=== PATIENT | female | born 1975 | race Two or more races ===

== ENCOUNTER 2018-09-17 11:27 | Emergency (ER) | payer OTHER ==
[2018-09-17 11:38] VITALS: BMI 26.4
[2018-09-17 12:41] LABS: PH,URINE 7.5 (5.0-8.0); URINE APPEARANCE CLEAR; URINE BILIRUBIN NEGATIVE (NEGATIVE); URINE COLOR YELLOW; URINE GLUCOSE (UA) NEGATIVE (NEGATIVE); URINE KETONE NEGATIVE (NEGATIVE); URINE LEUK ESTERASE NEGATIVE (NEGATIVE); URINE NITRITE NEGATIVE (NEGATIVE); URINE PROTEIN NEGATIVE (NEGATIVE); URINE UROBILINOGEN 0.2 mg/dL (0.2-1.0)
[2018-09-17 12:44] LABS: HCG,QUALITATIVE URINE Negative
[2018-09-17] MEDS ORDERED: SODIUM CHLORIDE 0.9% 1000 ML INFUS.BAG IV ONE (13:10)
[2018-09-17 13:29] LABS: EOS % 0.9 % (0-4.5); HEMATOCRIT 40.2 % (32.4-45.2); HEMOGLOBIN 13.6 GM/dL (10.7-15.3); LYMPH % 23.5 % (8-40); MCH 30.5 pg (25.7-33.7); MCHC 33.8 g/dl (32.0-36.0); MEAN CELL VOLUME 90.2 fl (80-96); MEAN PLT VOLUME 9.9 fl (7.5-11.1); MONO % 8.5 % (3.8-10.2); NEUT % 66.1 % (42.8-82.8); PLATELET COUNT 242 K/MM3 (134-434); RBC 4.46 M/mm3 (3.60-5.2); RDW 12.9 % (11.6-15.6); WHITE BLOOD COUNT 8.8 K/mm3 (4.0-10.0)
[2018-09-17 13:54] LABS: ALBUMIN 4.3 g/dl (3.4-5.0); BILIRUBIN,TOTAL 0.3 mg/dL (0.2-1); BLOOD UREA NITROGEN 9.1 mg/dL (7-18); CALCIUM 9.9 mg/dL (8.5-10.1); CREATININE 0.9 mg/dL (0.55-1.3); POTASSIUM 3.8 mmol/L (3.5-5.1)
[2018-09-17] MEDS ORDERED: KETOROLAC TROMETHAMINE 15 MG/ML VIAL IVPUSH ONE (13:59)
[2018-09-17] MEDS ORDERED: KETOROLAC TROMETHAMINE 15 MG/ML VIAL ONE (14:02)
--- NOTE | 2018-09-17 14:25 | PDOC ---
Documentation entered by Millie Posey SCRIBE, acting as scribe for Pat Lopez MD. Pat Lopez MD: This documentation has been prepared by the carloibeKalpesh Lincy, SCRIBE, under my direction and personally reviewed by me in its entirety. I confirm that the documentation accurately reflects all work, treatment, procedures, and medical decision making performed by me. History of Present Illness - General Chief Complaint: Pain, Acute Stated Complaint: RT. LOWER BACK PAIN Time Seen by Provider: 09/17/18 11:46 History Source: Patient Exam Limitations: No Limitations - History of Present Illness Initial Comments: 09/17/18 12:46 The patient is a 43 year old female with a past medical history significant for HTN presents to the emergency department with right flank pain.The patient presents with 2 days of right flank pain that radiates to the right leg. The patient reports the pain is sharp in quality, with a severity of 8/10. The patient reports the pain is aggravated with lifting her leg and with driving. The patient reports associated symptoms of nausea and dysuria. Denies fever, chills, vomiting. Denies the use of alcohol. Denies trauma, fall or injury. Allergies: NKDA Surgical history: appendectomy PCP: Dr. Brody Powers. Past History - Past Medical History Allergies/Adverse Reactions: Allergies Allergy/AdvReac Type Severity Reaction Status Date / Time No Known Allergies Allergy Verified 09/17/18 11:38 Home Medications: Ambulatory Orders Hydrochlorothiazide [Hctz -] 25 mg PO DAILY 09/17/18 Ibuprofen [Motrin -] 600 mg PO TID PRN #60 tablet MDD 3 09/17/18 Lisinopril 20 mg PO DAILY 09/17/18 COPD: No HTN: Yes - Surgical History Appendectomy: Yes - Immunization History Immunization Up to Date: No - Suicide/Smoking/Psychosocial Hx Smoking History: Never smoked Have you smoked in the past 12 months: No Information on smoking cessation initiated: No Hx Alcohol Use: No Drug/Substance Use Hx: No Review of Systems - Review of Systems Able to Perform ROS?: Yes Comments:: 09/17/18 12:48 GENERAL/CONSTITUTIONAL: No fever or chills. No weakness. HEAD, EYES, EARS, NOSE AND THROAT: No change in vision. No ear pain or discharge. No sore throat. CARDIOVASCULAR: No chest pain or shortness of breath. RESPIRATORY: No cough, wheezing, or hemoptysis. GASTROINTESTINAL: +nausea. No vomiting, diarrhea or constipation. GENITOURINARY: +dysuria. No frequency, or change in urination. MUSCULOSKELETAL: +right flank pain radiating down to the right leg. No joint or muscle swelling or pain. No neck pain. SKIN: No rash NEUROLOGIC: No headache, vertigo, loss of consciousness, or change in strength/ sensation. ENDOCRINE: No increased thirst. No abnormal weight change. HEMATOLOGIC/LYMPHATIC: No anemia, easy bleeding, or history of blood clots. ALLERGIC/IMMUNOLOGIC: No hives or skin allergy. *Physical Exam - Vital Signs Last Vital Signs Temp Pulse Resp BP Pulse Ox 98.4 F 114 H 16 160/94 100 09/17/18 11:35 09/17/18 11:35 09/17/18 11:35 09/17/18 11:35 09/17/18 11:35 - Physical Exam Comments: 09/17/18 13:12 GENERAL: Awake, alert, and fully oriented, in no acute distress HEAD: No signs of trauma EYES: PERRLA, EOMI, sclera anicteric, conjunctiva clear ENT: Auricles normal inspection, hearing grossly normal, nares patent. Moist mucosa NECK: Normal ROM, supple, no lymphadenopathy, JVD, or masses LUNGS: Breath sounds equal, clear to auscultation bilaterally. No wheezes, and no crackles HEART: Regular rate and rhythm, normal S1 and S2, no murmurs, rubs or gallops ABDOMEN: +right CVA tenderness and right lower quadrant tenderness. No guarding , no rebound. EXTREMITIES: Normal range of motion, no edema. No erythema or tenderness. DP/PT pulses 2+ and symmetric. Warm and well perfused. NEUROLOGICAL: AOx3. Moves all extremities. Normal speech, normal gait 5/5 bilat lower ext. sensation intact. positive straight leg right leg. n SKIN: Warm, Dry, normal turgor, no rashes or lesions noted 09/17/18 16:03 ED Treatment Course - LABORATORY CBC & Chemistry Diagram: 09/17/18 13:20 09/17/18 13:20 - ADDITIONAL ORDERS Additional order review: Laboratory Results 09/17/18 09/17/18 13:20 12:22 Sodium 136 Potassium 3.8 Chloride 101 Carbon Dioxide 30 Anion Gap 6 L BUN 9.1 Creatinine 0.9 Est GFR (CKD-EPI)AfAm 90.13 Est GFR (CKD-EPI)NonAf 77.76 Random Glucose 98 Calcium 9.9 Total Bilirubin 0.3 AST 21 ALT 37 Alkaline Phosphatase 77 Total Protein 8.0 Albumin 4.3 Urine Color Yellow Urine Appearance Clear Urine pH 7.5 Ur Specific [place] 1.007 L Urine Protein Negative Urine Glucose (UA) Negative Urine Ketones Negative Urine Blood Negative Urine Nitrite Negative Urine Bilirubin Negative Urine Urobilinogen 0.2 Ur Leukocyte Esterase Negative Urine HCG, Qual Negative 09/17/18 13:20 RBC 4.46 MCV 90.2 MCHC 33.8 RDW 12.9 MPV 9.9 Neutrophils % 66.1 Lymphocytes % 23.5 Monocytes % 8.5 Eosinophils % 0.9 Basophils % 1.0 - RADIOLOGY Radiology Studies Ordered: Category Date Time Status ABDOMEN & PELVIS CT W/O CONTR [CT] Stat CT Scan 09/17/18 13:11 Ordered - Medications Given in the ED: ED Medications Discontinued Medications Generic Name Dose Route Start Last Admin Trade Name Freq PRN Reason Stop Dose Admin Ketorolac Tromethamine 15 mg 09/17/18 13:59 09/17/18 14:05 Toradol Injection - IVPUSH 09/17/18 14:00 15 mg ONCE ONE Administration Sodium Chloride 1,000 ml 09/17/18 13:10 09/17/18 13:22 Normal Saline - IV 09/17/18 13:11 1,000 ml ONCE ONE Administration Medical Decision Making - Medical Decision Making 09/17/18 14:23 43 yo F here with c/o right flank pain, lower abd pain. pain started few days ago, worse with bending and sitting in car. no new numbness weakness tingling. does report dysuria, no hematuria, no h/o renal colic. no f/c mild nausea, no vomiting. no f/c . on exam pt with no mildline spinal tenderness. right CVA tenderness. mild rlq ttp. nor rebound no guarding. ext wwp no edema. no calf tenderness. alert oriented x 3. skin warm and dry. differential renal colic, msk strain, uti pyelo. pt h/o prior appendicitis. focused ED us renal performed. no hydronephrosis. bladder nondistended. impression: normal renal us plan ct a/p pain control labs. ua negative for uti. 09/17/18 16:[address] a/p normal no acute process. will dc home ua negativ.e will treat for sciatica, low back strain motrin and fu pcp. *DC/Admit/Observation/Transfer Diagnosis at time of Disposition: Low back strain, Sciatica - Discharge Dispostion Disposition: HOME Condition at time of disposition: Stable Decision to Admit order: No - Prescriptions Prescriptions: Ibuprofen [Motrin -] 600 mg PO TID PRN #60 tablet MDD 3 PRN Reason: Pain - Referrals Referrals: Sachin Powers MD [Primary Care Provider] - - Patient Instructions Printed Discharge Instructions: Sciatica (Alternative Therapy) Additional Instructions: you can take ibuprofen 600 mg every 8 hrs as needed for pain. take with food. return for weakness numbness fever or any concerns. you CT abdomen and pelvis today is normal. your labs are unremarkable and your urine is negative for infection. - Post Discharge Activity
[2018-09-17 16:04] VITALS: BP 149/92; PULSE 72; TEMP 98.2
== END 2018-09-17 16:39 | disposition home or self-care (01) ==
LOC: JER 11:27
PROC: 3E0333Z Introduction of Anti-inflammatory into Peripheral Vein, Percutaneous Approach (ICD-10-PCS; principal; 2018-09-17)
PROC: 3E0337Z Introduction of Electrolytic and Water Balance Substance into Peripheral Vein, Percutaneous Approach (ICD-10-PCS; 2018-09-17)
PROC: BT43ZZZ Ultrasonography of Bilateral Kidneys (ICD-10-PCS; 2018-09-17)
DX: M54.30 Sciatica, unspecified side (principal); S39.012A Strain of muscle, fascia and tendon of lower back, initial encounter; X58.XXXA Exposure to other specified factors, initial encounter; Y93.89 Activity, other specified; Y92.89 Other specified places as the place of occurrence of the external cause; Y99.8 Other external cause status
CPT/HCPCS: 36415; 74176-TC; 76775; 80053; 81003; 84703; 85025; 87077; 87086; 96374; 99282-25; J7030

== ENCOUNTER 2019-04-01 23:10 | Emergency (ER) | payer OTHER ==
[2019-04-01 23:16] VITALS: BP 153/92; PULSE 89; TEMP 97.6; BMI 24.9
--- NOTE | 2019-04-02 00:12 | PDOC ---
History of Present Illness - General Chief Complaint: Shortness of Breath Stated Complaint: SOB Time Seen by Provider: 04/01/19 23:46 - History of Present Illness Initial Comments: The pt is a 44F w/ a history of HTN who presents for evaluation of shortness of breath. The pt states she feels like she cannot get enough air and has felt this way since this morning. She endorses associated non-productive cough. She denies DUKES, vision changes, dizziness, chest pain, abdominal pain, N/V/C/D, dysuria, hematuria, or changes in sensation. Denies smoking, history of NC/stroke, denies recent travel, OCP use, or history of PE. 04/02/19 00:05 Past History - Past Medical History Allergies/Adverse Reactions: Allergies Allergy/AdvReac Type Severity Reaction Status Date / Time No Known Allergies Allergy Verified 04/01/19 23:48 Home Medications: Ambulatory Orders Hydrochlorothiazide [Hctz -] 25 mg PO DAILY 09/17/18 Ibuprofen [Motrin -] 600 mg PO TID PRN #90 tablet 09/17/18 Lisinopril 20 mg PO DAILY 09/17/18 COPD: No HTN: Yes - Surgical History Appendectomy: Yes - Immunization History Immunization Up to Date: Yes - Psycho Social/Smoking Cessation Hx Smoking History: Never smoked Have you smoked in the past 12 months: No Hx Alcohol Use: No Drug/Substance Use Hx: No Review of Systems - Review of Systems Able to Perform ROS?: Yes Comments:: GENERAL/CONSTITUTIONAL: No fever or chills. No weakness HEAD, EYES, EARS, NOSE AND THROAT: No change in vision. No change in hearing. No sore throat CARDIOVASCULAR: No chest pain RESPIRATORY: Denies hemoptysis GASTROINTESTINAL: No nausea, vomiting, diarrhea or constipation GENITOURINARY: No dysuria, frequency, or change in urination MUSCULOSKELETAL: No joint or muscle swelling or pain. No neck or back pain SKIN: No rash NEUROLOGIC: No headache, vertigo, loss of consciousness, or change in strength/ sensation ENDOCRINE: No increased thirst. No abnormal weight change HEMATOLOGIC/LYMPHATIC: No anemia, easy bleeding, or history of blood clots ALLERGIC/IMMUNOLOGIC: No hives or skin allergy 04/02/19 00:07 Is the patient limited Polish proficient: No *Physical Exam - Vital Signs Last Vital Signs Temp Pulse Resp BP Pulse Ox 97.6 F 89 20 153/92 100 04/01/19 23:12 04/01/19 23:12 04/01/19 23:12 04/01/19 23:12 04/01/19 23:12 - Physical Exam GENERAL: Awake, alert, and oriented to person/place/time, in no acute distress HEAD: No signs of trauma, normocephalic, atraumatic EYES: PERRLA, EOMI, sclera anicteric, conjunctiva clear ENT: Hearing grossly normal, nares patent, oropharynx clear without exudates. Moist mucosa LUNGS: No distress, speaks in full sentences, clear to auscultation bilaterally HEART: Regular rate and rhythm, normal S1 and S2, no murmurs appreciated, peripheral pulses normal and equal bilaterally ABDOMEN: Soft, nontender, normoactive bowel sounds. No guarding, no rebound EXTREMITIES: Normal inspection, Normal range of motion, no edema. No clubbing or cyanosis NEUROLOGICAL: Cranial nerves II through XII grossly intact. Normal speech, normal gait, no focal sensorimotor deficits SKIN: Warm, Dry 04/02/19 00:09 Medical Decision Making - Medical Decision Making The pt is a 44F w/ a history of HTN who presents for evaluation of shortness of breath. ED Course PERC Rule for Pulmonary Embolism from [email or web address] on 04/02/2019 RESULT SUMMARY: 0 criteria No need for further workup, as <2% chance of PE. If no criteria are positive and clinicians pre-test probability is <15%, PERC Rule criteria are satisfied. INPUTS: Age ?50 > 0 = No HR ?100 > 0 = No O? sat on room air > 0 = No Unilateral leg swelling > 0 = No Hemoptysis > 0 = No Recent surgery or trauma > 0 = No Prior PE or DVT > 0 = No Hormone use > 0 = No Will obtain an ECG Pt with low risk for PE No fever, focal breath sounds, tachycardia or hypoxia, not likely PNA 04/02/19 00:10 ECG w/ NSR; HR 74; QTc 457; no axis deviation; no TWI, no THUY 04/02/19 00:59 Discharge - Discharge Information Problems reviewed: Yes Clinical Impression/Diagnosis: Shortness of breath Condition: Stable Disposition: HOME - Admission No - Follow up/Referral Referrals: [facility] [place] [Provider Group] - Patient Discharge Instructions Patient Printed Discharge Instructions: DI for Shortness of Breath, DI for Anxiety -- Adult Additional Instructions: You were seen in the Emergency Department for evaluation of trouble breathing. Your ECG was not concerning. Review the handout provided at discharge. Follow up with your primary care provider and Packing Machine Operator within the week. Return to the Emergency Department if you develop fevers, chest pain, trouble breathing, worsening symptoms, or any new/concerning symptoms. Lo vieron en el departamento de emergencias para evaluar los problemas para respirar. Bonner ECG no era preocupante. Revise el folleto proporcionado al juarez. Maris un seguimiento con bonner proveedor de atencin primaria y cardilogo dentro de la semana. Regrese al Departamento de Emergencias si desarrolla fiebre, dolor en el pecho, dificultad para respirar, empeoramiento de los sntomas o cualquier sntoma nuevo o preocupante. - Post Discharge Activity Work/Back to School Note: Back to Work
--- NOTE | 2019-04-02 00:24 | PDOC ---
Documentation entered by Macarena Pritchett SCRIBE, acting as scribe for Dipti Rodriguez MD. Dipti Rodriguez MD: This documentation has been prepared by the carloibambika, Macarena Pritchett SCRIBE, under my direction and personally reviewed by me in its entirety. I confirm that the documentation accurately reflects all work, treatment, procedures, and medical decision making performed by me. Attending Attestation - Resident Resident Name: Bird Jennings - ED Attending Attestation I have performed the following: I have examined & evaluated the patient, The case was reviewed & discussed with the resident, I agree w/resident's findings & plan, Exceptions are as noted - HPI HPI: 04/02/19 00:20 44-year-old female presents because of Feeling short of breath and anxious. She does not have chest pain. She states that she does have a history of tachycardia and takes carvedilol for this. She had a stress test, Holter monitor and echo done in October and her access representative said everything was fine She has had symptoms like this before that prompted the work-up Today she was 100% pulse ox on room air, her pulse is between 59 and 74 bpm EKG is normal sinus rhythm at 74 beats minute with no signs of ischemia Patient reassured she states she has not had any recent significant travel or surgeries She states she does not use tobacco no family history of early cardiac demise 04/02/19 01:02 imp anxxiety plan d/c home - Physicial Exam PE: 04/02/19 00:21 wnwd 44 yo female in no acute distress head ncat neck supple,No bruits, no JVD lungs cta b/l cvs [id number] no rubs,gallops or murmer abd nontender no flank pain skin warm and dry neuro no gross focal deficits 04/02/19 00:55 - Medical Decision Making 04/02/19 01:05 please see note above
--- NOTE | 2019-04-02 11:34 | EKG ---
Test Reason : Blood Pressure : / mmHG Vent. Rate : 074 BPM Atrial Rate : 074 BPM P-R Int : 172 ms QRS Dur : 092 ms QT Int : 412 ms P-R-T Axes : 040 008 017 degrees QTc Int : 457 ms NORMAL SINUS RHYTHM NORMAL ECG NO PREVIOUS ECGS AVAILABLE Confirmed by KURT ZEPEDA MD ([id number]) on 04/02/2019 11:33:59 AM Referred By: Confirmed By:KURT ZEPEDA MD
== END 2019-04-02 01:17 | disposition home or self-care (01) ==
LOC: JER 23:10
DX: R06.02 Shortness of breath (principal); I10 Essential (primary) hypertension
CPT/HCPCS: 93005; 93010; 99281-25

== ENCOUNTER 2020-08-27 12:38 | Observation (INO) | payer OTHER ==
[2020-08-27 15:10] LABS: BASO % 0.8 % (0-2.0); EOS % 0.3 % (0-4.5); HEMATOCRIT 40.1 % (32.4-45.2); HEMOGLOBIN 13.8 GM/dL (10.7-15.3); LYMPH % 12.8 % (8-40); MCHC 34.4 g/dl (32.0-36.0); MEAN PLT VOLUME 10.9 fl (7.5-11.1); MONO % 5.8 % (3.8-10.2); NEUT % 80.3 % (42.8-82.8); PLATELET COUNT 210 K/MM3 (134-434); RBC 4.46 M/mm3 (3.60-5.2); RDW 12.8 % (11.6-15.6); WHITE BLOOD COUNT 11.4 K/mm3 (4.0-10.0)
[2020-08-27 15:30] LABS: CHLORIDE 103 mmol/L (98-107); SODIUM 134 mmol/L (136-145)
[2020-08-27 15:32] LABS: CALCIUM 9.9 mg/dL (8.5-10.1)
[2020-08-27 15:33] LABS: ALBUMIN 4.5 g/dl (3.4-5.0); BLOOD UREA NITROGEN 12.9 mg/dL (7-18); CO2 26 mmol/L (21-32); GLUCOSE,RANDOM 94 mg/dL (74-106)
[2020-08-27] MEDS ORDERED: FAMOTIDINE 20 MG TABLET PO ONE (15:35)
[2020-08-27] MEDS ORDERED: ACETAMINOPHEN 325 MG TABLET (FP) PO ONE (15:35)
[2020-08-27] MEDS ORDERED: MAG HYDROX/AL HYDROX/SIMETH 30 ML UNIT-DOSE CUP PO ONE (15:35)
[2020-08-27 15:36] LABS: CREATININE 0.9 mg/dL (0.55-1.3); SGOT/AST 65 U/L (15-37); SGPT/ALT 53 U/L (13-61)
[2020-08-27 15:38] LABS: ALK PHOS 66 U/L (45-117); BILIRUBIN,TOTAL 0.6 mg/dL (0.2-1); TOT PROT 8.4 g/dl (6.4-8.2)
[2020-08-27 15:46] LABS: ANION GAP 5 MMOL/L (8-16)
[2020-08-27] MEDS ORDERED: ACETAMINOPHEN 325 MG TABLET (FP) ONE (16:28)
[2020-08-27] MEDS ORDERED: MAG HYDROX/AL HYDROX/SIMETH 30 ML UNIT-DOSE CUP ONE (16:28)
[2020-08-27] MEDS ORDERED: FAMOTIDINE 20 MG TABLET ONE (16:28)
[2020-08-27] MEDS ORDERED: ASPIRIN 81 MG CHEWABLE TABLETS PO ONE ×2 (16:29→18:23)
[2020-08-27] MEDS ORDERED: ASPIRIN 81 MG CHEWABLE TABLETS ONE ×2 (16:34→18:26)
[2020-08-27 19:49] LABS: INR 0.98 (0.83-1.09); PROTHROMBIN TIME (PATIENT) 11.9 SEC (9.7-13.0)
[2020-08-27 19:51] LABS: ACTIVATED PTT 25.8 SECONDS (25.2-36.5)
[2020-08-27] MEDS ORDERED: MECLIZINE HCL 12.5 MG TABLET PO PRN (20:25)
[2020-08-27] MEDS ORDERED: ALPRAZolam 0.25 MG TABLET PO PRN (22:49)
[2020-08-27 23:35] LABS: EPI CELLS 9 /uL (0-25.1); HYALINE CASTS 3 /uL (0-3.1); URINE APPEARANCE CLEAR; URINE BACTERIA 143 /uL (0-1359); URINE BILIRUBIN NEGATIVE (NEGATIVE); URINE COLOR YELLOW; URINE GLUCOSE (UA) NEGATIVE (NEGATIVE); URINE KETONE NEGATIVE (NEGATIVE); URINE LEUK ESTERASE 3+ (NEGATIVE); URINE NITRITE NEGATIVE (NEGATIVE); URINE PROTEIN NEGATIVE (NEGATIVE); URINE RBC 7 /uL (0-23.9); URINE UROBILINOGEN 0.2 mg/dL (0.2-1.0); URINE WBC 626 /uL (0-25.8)
[2020-08-28 00:31] VITALS: BMI 29.3
[2020-08-28 06:49] LABS: BASO % 0.7 % (0-2.0); EOS % 2.2 % (0-4.5); HEMATOCRIT 38.5 % (32.4-45.2); LYMPH % 30.5 % (8-40); MCH 30.7 pg (25.7-33.7); MCHC 33.8 g/dl (32.0-36.0); MEAN CELL VOLUME 90.9 fl (80-96); MEAN PLT VOLUME 10.4 fl (7.5-11.1); MONO % 11.3 % (3.8-10.2); NEUT % 55.3 % (42.8-82.8); PLATELET COUNT 216 K/MM3 (134-434); RBC 4.23 M/mm3 (3.60-5.2); RDW 13.1 % (11.6-15.6); WHITE BLOOD COUNT 7.8 K/mm3 (4.0-10.0)
[2020-08-28 07:06] LABS: CALCIUM 9.6 mg/dL (8.5-10.1)
[2020-08-28 07:07] LABS: ALBUMIN 3.8 g/dl (3.4-5.0); BLOOD UREA NITROGEN 9.4 mg/dL (7-18); MAGNESIUM 2.3 mg/dL (1.8-2.4)
[2020-08-28 07:10] LABS: BILIRUBIN,TOTAL 0.8 mg/dL (0.2-1); CREATININE 0.7 mg/dL (0.55-1.3); PHOSPHOROUS 3.3 mg/dL (2.5-4.9)
[2020-08-28 07:11] LABS: TOT PROT 7.2 g/dl (6.4-8.2)
[2020-08-28] MEDS: HYDROCHLOROTHIAZIDE 25 MG TABLET (FP) PO SCH (09:01)
[2020-08-28] MEDS: ASPIRIN 81 MG CHEWABLE TABLETS PO SCH (09:01)
[2020-08-28] MEDS: LISINOPRIL 20 MG TABLET PO SCH (09:01)
[2020-08-28] MEDS: PANTOPRAZOLE 40 MG TABLET PO SCH (09:01)
[2020-08-28] MEDS: ENOXAPARIN NA (PORCINE) 40 MG/0.4 ML DISP.SYRIN SQ SCH (09:01)
[2020-08-28] MEDS ORDERED: MAG HYDROX/AL HYDROX/SIMETH 30 ML UNIT-DOSE CUP PO ONE (13:00)
[2020-08-29] MEDS: ENOXAPARIN NA (PORCINE) 40 MG/0.4 ML DISP.SYRIN SQ SCH (09:14)
[2020-08-29] MEDS: PANTOPRAZOLE 40 MG TABLET PO SCH (09:14)
[2020-08-29] MEDS: ASPIRIN 81 MG CHEWABLE TABLETS PO SCH (09:14)
[2020-08-29] MEDS: LISINOPRIL 20 MG TABLET PO SCH (09:14)
[2020-08-29] MEDS: HYDROCHLOROTHIAZIDE 25 MG TABLET (FP) PO SCH (09:15)
[2020-08-30 06:44] LABS: BASO % 0.8 % (0-2.0); HEMATOCRIT 40.3 % (32.4-45.2); HEMOGLOBIN 13.6 GM/dL (10.7-15.3); LYMPH % 32.9 % (8-40); MCH 30.7 pg (25.7-33.7); MCHC 33.7 g/dl (32.0-36.0); MEAN PLT VOLUME 10.1 fl (7.5-11.1); MONO % 10.9 % (3.8-10.2); NEUT % 53.4 % (42.8-82.8); PLATELET COUNT 226 K/MM3 (134-434); RBC 4.43 M/mm3 (3.60-5.2); RDW 12.7 % (11.6-15.6); WHITE BLOOD COUNT 9.4 K/mm3 (4.0-10.0)
[2020-08-30 07:10] LABS: BLOOD UREA NITROGEN 13.5 mg/dL (7-18)
[2020-08-30 07:12] LABS: CALCIUM 9.5 mg/dL (8.5-10.1)
[2020-08-30 07:14] LABS: CREATININE 0.8 mg/dL (0.55-1.3); MAGNESIUM 2.3 mg/dL (1.8-2.4)
[2020-08-30 07:23] LABS: CHOLESTEROL 183 mg/dL (50-200); TRIGLYCERIDES 187 mg/dL (0-150)
[2020-08-30 07:24] LABS: LDL CHOLESTEROL (ONLY SJRH) 96 mg/dL (5-100)
[2020-08-30 07:26] LABS: HDL CHOLESTEROL 58 mg/dL (40-60)
[2020-08-30] MEDS: HYDROCHLOROTHIAZIDE 25 MG TABLET (FP) PO SCH (09:30)
[2020-08-30] MEDS: LISINOPRIL 20 MG TABLET PO SCH (09:30)
[2020-08-30 14:17] VITALS: BP 121/78; PULSE 96; TEMP 98.6
[2020-08-30] MEDS: PANTOPRAZOLE 40 MG TABLET PO SCH (15:34)
[2020-08-30] MEDS: ASPIRIN 81 MG CHEWABLE TABLETS PO SCH (15:34)
[2020-08-30] MEDS: ENOXAPARIN NA (PORCINE) 40 MG/0.4 ML DISP.SYRIN SQ SCH (15:34)
== END 2020-08-30 16:10 | disposition home or self-care (01) ==
LOC: JER 12:38 → JERBED 18:17 → J4S 22:26
PROVIDERS: ADMIT Internal Medicine; ATTEND Internal Medicine
DX: F41.9 Anxiety disorder, unspecified (principal); I10 Essential (primary) hypertension; K21.9 Gastro-esophageal reflux disease without esophagitis; R42 Dizziness and giddiness; R07.9 Chest pain, unspecified
CPT/HCPCS: 36415; 71046-TC-FY; 78452-TC; 80048; 80053; 80061; 81003; 83036; 83721; 83735; 84100; 84132; 84443; 84484; 85025; 85379; 85610; 85651; 85730; 86141; 87077; 87086; 93005; 93010; 93017; 93306-TC; 99285-25; A9502; C9803; G0378; U0003; U0005